=== PATIENT | male | born 1940 | race Caucasian/White ===

== ENCOUNTER → 2018-02-07 | Outpatient (CLI) | payer MEDICARE, OTHER ==
--- NOTE | 2018-02-10 07:07 | NM ---
EXAMINATION TYPE: NM brain SPECT DATE OF EXAM: 02/07/2018 COMPARISON: NONE HISTORY: Dystonia unspecified per order. TECHNIQUE: Following injection of 25.0 mCi Tc 99m Neurolite, SPECT images of the brain were obtained and reconstructed in three axes. Images obtained 75 minutes post injection. FINDINGS: No foci of significantly abnormal metabolism. Symmetric uptake throughout the brain parenchyma includ ing frontal, temporal, and parietal lobes is felt present and felt within normal limits. No suspiciou s areas of focal diminished or increased uptake are present. IMPRESSION: As above, exam felt within normal limits. Consider PR DatScan follow up.
== END | disposition home or self-care (01) ==
LOC: RADNMMAIN 12:50
PROVIDERS: ATTEND Psychiatry & Neurology Neurology
DX: G24.9 Dystonia, unspecified (principal)
CPT/HCPCS: 78607; A9557